=== PATIENT | female | born 1975 | race Native Hawaiian/Other Pacific Islander ===

== ENCOUNTER 2021-07-26 14:44 | Emergency (ER) | payer OTHER ==
[~2021-07-26] VITALS: Ht 165.1 cm; Wt 73.5 kg
[2021-07-26 15:42] VITALS: BP 130/64; TEMP 97.5
== END 2021-07-26 15:42 | disposition home or self-care (01) ==
LOC: ED 14:44
DX: J06.9 Acute upper respiratory infection, unspecified (principal); F17.210 Nicotine dependence, cigarettes, uncomplicated
CPT/HCPCS: 99282